=== PATIENT | male | born 1975 | race Two or more races ===

== ENCOUNTER 2023-03-22 18:28 | Emergency (ER) | payer OTHER ==
[~2023-03-22] VITALS: Ht 185.4 cm; Wt 102.3 kg
[2023-03-22] MEDS ORDERED: IBUPROFEN 800 MG TAB PO ONE (23:30)
[2023-03-22 23:55] VITALS: BP 119/73; PULSE 86; RESP 20; TEMP 98.3; O2SAT 96
[2023-03-23] MEDS ORDERED: HYDROcodone-ACET 10/325MG TAB PO ONE (00:30)
== END 2023-03-23 00:22 | disposition left against medical advice (07) ==
LOC: ER 18:28
DX: S82.302A Unspecified fracture of lower end of left tibia, initial encounter for closed fracture (principal); S82.402A Unspecified fracture of shaft of left fibula, initial encounter for closed fracture; V86.56XA Driver of dirt bike or motor/cross bike injured in nontraffic accident, initial encounter; Y93.89 Activity, other specified; Y92.89 Other specified places as the place of occurrence of the external cause; Y99.8 Other external cause status
CPT/HCPCS: 29515; 73590